=== PATIENT | female | born 1950 | race African-American/Black ===

== ENCOUNTER 2022-08-10 12:46 | Observation (INO) | payer OTHER ==
[2022-08-10 12:53] VITALS: BMI 36.3
[2022-08-10] MEDS ORDERED: FAMOTIDINE 20 MG/50 ML IVPB 20 MG/50 ML MG IVPB ONE (13:11)
[2022-08-10] MEDS ORDERED: dilTIAZem HCL 50 MG/10 ML - 10 ML VIAL IVPUSH ONE ×2 (13:11→13:31)
[2022-08-10] MEDS ORDERED: ASPIRIN 81 MG CHEWABLE TABLETS PO ONE (13:11)
[2022-08-10] MEDS ORDERED: dilTIAZem HCL 125 MG/25 ML - 25 ML VIAL ONE ×4 (13:13→14:37)
[2022-08-10] MEDS ORDERED: ASPIRIN 81 MG CHEWABLE TABLETS ONE (13:46)
[2022-08-10] MEDS ORDERED: dilTIAZem HCL 30 MG TABLET PO ONE (13:48)
[2022-08-10] MEDS ORDERED: dilTIAZem HCL 30 MG TABLET ONE (13:50)
[2022-08-10 13:57] LABS: BASO % 0.9 % (0-2.0); EOS % 0.5 % (0-4.5); HEMATOCRIT 41.9 % (32.4-45.2); HEMOGLOBIN 14.7 GM/dL (10.7-15.3); MCH 27.6 pg (25.7-33.7); MCHC 34.9 g/dl (32.0-36.0); MEAN PLT VOLUME 9.2 fl (7.5-11.1); MONO % 7.6 % (3.8-10.2); PLATELET COUNT 339 10^3/uL (134-434); RBC 5.31 M/mm3 (3.60-5.2); RDW 14.9 % (11.6-15.6); WHITE BLOOD COUNT 4.9 K/mm3 (4.0-10.0)
[2022-08-10] MEDS ORDERED: dilTIAZem HCL 50 MG/10 ML - 10 ML VIAL ONE (14:06)
[2022-08-10 14:14] LABS: INR 1.03 (0.83-1.09)
[2022-08-10 14:15] LABS: ALBUMIN 3.7 g/dl (3.4-5.0); BLOOD UREA NITROGEN 13.4 mg/dL (7-18); MAGNESIUM 1.8 mg/dL (1.8-2.4)
[2022-08-10 14:17] LABS: PHOSPHOROUS 2.6 mg/dL (2.5-4.9)
[2022-08-10 14:18] LABS: CREATININE 0.8 mg/dL (0.55-1.3)
[2022-08-10 14:19] LABS: BILIRUBIN,TOTAL 0.8 mg/dL (0.2-1); TOT PROT 8.9 g/dl (6.4-8.2)
[2022-08-10 14:23] LABS: N-TERMINAL BNP 638.2 pg/ml (5-125)
[2022-08-10] MEDS ORDERED: predniSONE 5 MG TABLET (UD) PO SCH (16:00)
[2022-08-10] MEDS ORDERED: TOFACITINIB CITRATE 11 MG PO SCH (16:00)
[2022-08-10] MEDS: dilTIAZem HCL 30 MG TABLET PO SCH (17:50)
[2022-08-10 18:09] VITALS: RESP 18
[2022-08-10] MEDS: APIXABAN 5 MG TABLET PO SCH (21:30)
[2022-08-10 21:35] LABS: URINE APPEARANCE CLEAR; URINE BILIRUBIN NEGATIVE (NEGATIVE); URINE COLOR YELLOW; URINE GLUCOSE (UA) NEGATIVE (NEGATIVE); URINE KETONE NEGATIVE (NEGATIVE); URINE LEUK ESTERASE NEGATIVE (NEGATIVE); URINE NITRITE NEGATIVE (NEGATIVE); URINE PROTEIN TRACE (NEGATIVE); URINE UROBILINOGEN 0.2 mg/dL (0.2-1.0)
[2022-08-11] MEDS: dilTIAZem HCL 30 MG TABLET PO SCH ×2 (00:07→06:13)
[2022-08-11 08:23] LABS: BASO % 0.7 % (0-2.0); EOS % 1.5 % (0-4.5); HEMATOCRIT 36.8 % (32.4-45.2); HEMOGLOBIN 12.9 GM/dL (10.7-15.3); LYMPH % 29.5 % (8-40); MCH 27.6 pg (25.7-33.7); MCHC 34.9 g/dl (32.0-36.0); MEAN CELL VOLUME 79.1 fl (80-96); MONO % 10.7 % (3.8-10.2); NEUT % 57.6 % (42.8-82.8); PLATELET COUNT 260 10^3/uL (134-434); RBC 4.66 M/mm3 (3.60-5.2); RDW 14.4 % (11.6-15.6); WHITE BLOOD COUNT 4.6 K/mm3 (4.0-10.0)
[2022-08-11 08:41] LABS: BLOOD UREA NITROGEN 12.7 mg/dL (7-18); CALCIUM 9.3 mg/dL (8.5-10.1)
[2022-08-11 08:45] LABS: CREATININE 0.7 mg/dL (0.55-1.3)
[2022-08-11] MEDS: APIXABAN 5 MG TABLET PO SCH ×2 (09:41→21:39)
[2022-08-11] MEDS: HYDROCHLOROTHIAZIDE 12.5 MG CAPSULE (FP) PO SCH (09:41)
[2022-08-11] MEDS ORDERED: PATIENT'S OWN MEDICATION (NON-FORMULARY) (Losartan/Hydrochlorothiazide [Losartan-Hctz 100- PO SCH (10:00)
[2022-08-11] MEDS ORDERED: LOSARTAN POTASSIUM 100 MG TABLET PO SCH (10:00)
[2022-08-11] MEDS: METOPROLOL TARTRATE 25 MG TABLET (FP) PO SCH ×2 (10:09→21:39)
[2022-08-12] MEDS ORDERED: ACETAMINOPHEN 1000 MG/100 ML BAG IVPB ONE (00:05)
[2022-08-12] MEDS: APIXABAN 5 MG TABLET PO SCH (09:08)
[2022-08-12] MEDS: METOPROLOL TARTRATE 25 MG TABLET (FP) PO SCH (09:08)
[2022-08-12] MEDS: HYDROCHLOROTHIAZIDE 12.5 MG CAPSULE (FP) PO SCH (09:08)
[2022-08-12] MEDS ORDERED: predniSONE 5 MG TABLET (UD) PO ONE ×2 (10:53→13:30)
[2022-08-12 12:02] VITALS: TEMP 98.4
[2022-08-12 14:58] VITALS: BP 134/80; PULSE 97
[2022-08-13] MEDS ORDERED: predniSONE 5 MG TABLET (UD) PO SCH (10:00)
[2022-08-13 16:08] LABS: THYROID STIM IMMUNOGLOBULIN 0.47 IU/L (0.00-0.55)
== END 2022-08-12 17:46 | disposition home or self-care (01) ==
LOC: JER 12:46 → JERBED 15:12 → INTOOBSV 15:12 → J4W 17:40
PROVIDERS: ADMIT Internal Medicine; ATTEND Internal Medicine
PROC: 3E033NZ Introduction of Analgesics, Hypnotics, Sedatives into Peripheral Vein, Percutaneous Approach (ICD-10-PCS; principal; 2022-08-10)
PROC: 3E033GC Introduction of Other Therapeutic Substance into Peripheral Vein, Percutaneous Approach (ICD-10-PCS; 2022-08-10)
DX: I48.91 Unspecified atrial fibrillation (principal); I11.9 Hypertensive heart disease without heart failure; E11.9 Type 2 diabetes mellitus without complications; E78.5 Hyperlipidemia, unspecified; R12 Heartburn; M19.90 Unspecified osteoarthritis, unspecified site; I24.8 Other forms of acute ischemic heart disease
CPT/HCPCS: 0241U-QW; 36415; 71045-TC-FY; 80048; 80053; 81003; 82962; 83690; 83735; 83880; 84100; 84439; 84443; 84445; 84480; 84481; 84484; 85025; 85610; 85730; 86376; 87086; 93005; 93010; 93306-TC; 96374; 96375; 96376; 99291; G0378